=== PATIENT | male | born 1940 | race Caucasian/White ===

== ENCOUNTER 2021-02-14 04:02 | Inpatient (IN) | payer MEDICARE, OTHER ==
[~2021-02-14] VITALS: Ht 165.1 cm; Wt 58.3 kg
--- NOTE | 2021-02-14 04:10 | NUR ---
pt BIB [facility] and met at ambulance bay by EDMD Dr. Cortez. Pt a little ashen and short of breath, SaO2 at 91%, moderate cough and diaphoresis. Pt placed in room 2A by Dr. Cortez. heart monitor attached and initial VS taken. Slightly hypertensive with SBP at 156. Crackles in left base. Scattered Rhonchi and wheezing throughout. Low grade fever at 99.5. Complaining of moderate pain.
[2021-02-14] MEDS ORDERED: levoFLOXacin 750MG/D5W 150 ML IV ONE (04:15)
[2021-02-14] MEDS ORDERED: IPRATROPIUM BROMIDE 0.5 MG/2.5 ML NEBU NEB ONE (04:15)
[2021-02-14] MEDS ORDERED: ALBUTEROL SULFATE 2.5 MG/3 ML NEBU IH ONE (04:15)
[2021-02-14] MEDS ORDERED: ALBUTEROL SULFATE 2.5 MG/3 ML NEBU ONE (04:25)
--- NOTE | 2021-02-14 04:25 | NUR ---
pt's nasal passages swabbed for flu, covid and RSV, specimens sent to lab.
[2021-02-14] MEDS ORDERED: IPRATROPIUM BROMIDE 0.5 MG/2.5 ML NEBU ONE (04:26)
[2021-02-14] MEDS ORDERED: PIPERACILLIN SODIUM/TAZOBACTAM 3.375 G in IV DEXTROSE 5% 50 ML IV ONE (04:30)
[2021-02-14] MEDS ORDERED: CEFTRIAXONE 1 G in IV DEXTROSE 5% 50 ML IV ONE (04:30)
[2021-02-14] MEDS ORDERED: CEFTRIAXONE /D5W 50ML IVPB **ER PYXIS IV ONE (04:38)
[2021-02-14] MEDS ORDERED: methylPREDNISolone SOD SUCC 125 MG/2 ML VIAL IV ONE (04:45)
[2021-02-14 04:46] LABS: CARBON DIOXIDE 24 mmol/L (21-32); CHLORIDE 101 mmol/L (98-107); CREATININE 1.4 mg/dL (0.6-1.3); GLUCOSE 125 mg/dL (74-106); POTASSIUM 3.8 mmol/L (3.5-5.1); UREA NITROGEN, BLOOD 19 mg/dL (7-18)
[2021-02-14] MEDS ORDERED: ATOR40TA PO (04:50)
[2021-02-14] MEDS ORDERED: ASPI81TA31 PO (04:50)
[2021-02-14] MEDS ORDERED: TELM40TA8 PO (04:50)
[2021-02-14] MEDS ORDERED: MIRA50TA PO (04:50)
[2021-02-14 04:55] LABS: ABG BASE EXCESS -1.2 mmol/L; ABG HCO3 22.6 mmol/L; ABG PCO2 34.7 mmHg (35.0-45.0); ABG PH 7.432 (7.350-7.450); ABG PO2 73.8 mmHg (75.0-100.0); ABG SITE RIGHT RADIAL; ABG TOTAL HEMOGLOBIN 10.5 G/dL (13.5-18.0); COHb 0.3 % (0.5-1.5); MetHb 0.4 % (0.0-1.5); O2Hb 94.1 % (94.0-97.0); VENT MODE Nasal Cannula
[2021-02-14 04:59] LABS: HEMATOCRIT 34.9 % (36.7-47.1); MEAN CORPUSCULAR VOLUME 86.8 fL (73.0-96.2); PLATELET COUNT (AUTO) 83 K/uL (152-348)
[2021-02-14] MEDS ORDERED: PIPERACILLIN/TAZOBACTAM/D5W 50 ML IV ONE (04:59)
[2021-02-14 05:00] LABS: *BILIRUBIN,URIN NEGATIVE (NEGATIVE); *BLOOD, URINE NEGATIVE (NEGATIVE); *CLARITY,URINE CLEAR (CLEAR); *COLOR,URINE YELLOW (YELLOW); *KETONES,URINE NEGATIVE (NEGATIVE); *UROBILINOGEN,URINE 0.2 E.U./dl (NORMAL); LEUKOCYTE ESTERASE ,URINE NEGATIVE (NEGATIVE); NITRITE, URINE NEGATIVE (NEGATIVE); PH,URINE 5.5 (5.0-8.0); UGLUCOSE NEGATIVE (NEGATIVE)
[2021-02-14] MEDS ORDERED: IV NORMAL SALINE 500 ML BAG IV ONE (05:00)
[2021-02-14 05:02] LABS: ALANINE AMINOTRANSFERASE 24 U/L (16-63); ALKALINE PHOSPHATASE 84 U/L (50-136); ASPARTATE AMINOTRANSFERASE 27 U/L (15-37); BILIRUBIN,DIRECT 0.2 mg/dL (0.0-0.2); TOTAL PROTEIN, SERUM 6.4 g/dL (6.4-8.2)
[2021-02-14] MEDS ORDERED: methylPREDNISolone SOD SUCC 125 MG/2 ML VIAL ONE (05:09)
[2021-02-14] MEDS ORDERED: IV NORMAL SALINE 250 ML IV ONE (06:03)
[2021-02-14] MEDS ORDERED: IOHEXOL 350 100 ML INFUS..BTL ONE (06:03)
[2021-02-14] MEDS ORDERED: SWABABLE VALVE TRANSFER SET EA MC ONE (06:03)
--- NOTE | 2021-02-14 06:05 | NUR ---
Pt taken to CT for pulmoangioCT
--- NOTE | 2021-02-14 06:20 | NUR ---
Pt returned from CT. Pt tolerated exam well.
--- NOTE | 2021-02-14 07:05 | NUR ---
Pt is in room 2A resting comfortably, dosing off to sleep, no more audible wheezes, saturating well at 98% SaO2 on 3L O2, however when falling into deep sleep pt does quickly desaturate to the high 80s due to mouth breathing while asleep. Pt's color and appearance has markly improved and is no longer ashen or diaphoretic.
--- NOTE | 2021-02-14 07:10 | NUR ---
Thorough Report given to morning EDRN Momo BOND. Pt has good color and appearance, oxygenating, perfusing, and saturating well. VSS, PE WNL, strong and reg pulses x4ext. Stong and equal rod straightener strength bilat. Slight crackles in LLL, otherwise clear. Denies any pain or discomfort. No s/sx of distess noted. Pts daughter left number to endores to teleRN.
[2021-02-14] MEDS ORDERED: eye drop OP (07:13)
[2021-02-14] MEDS ORDERED: MAGNESIUM HYDROXIDE 30 ML LIQUID UDC PO PRN (07:30)
[2021-02-14] MEDS ORDERED: ACETAMINOPHEN 325 MG TABLET PO PRN (07:30)
[2021-02-14] MEDS ORDERED: Z GUARD REMEDY PASTE 57 GM TUBE TOP PRN (07:30)
[2021-02-14] MEDS ORDERED: ONDANSETRON 4 MG/2 ML VIAL IV PRN (07:30)
[2021-02-14] MEDS ORDERED: IV NS 1000 ML 1,000 ML IV PRN (07:30)
--- NOTE | 2021-02-14 07:52 | NUR ---
REPORT WAS GIVEN TO RN ZACHERY. PT WAS TRANSFERED TO ROOM #312.
[2021-02-14] MEDS ORDERED: VANCOMYCIN IV 1,000 MG in IV DEXTROSE 5% 250 ML IV ONE (08:00)
[2021-02-14 08:45] VITALS: BP 136/47
[2021-02-14 11:54] VITALS: BP 130/48
[2021-02-14] MEDS: PIPERACILLIN SODIUM/TAZOBACTAM 3.375 G in IV DEXTROSE 5% 50 ML IV SCH ×2 (13:54→18:12)
[2021-02-14] MEDS ORDERED: PIPERACILLIN SODIUM/TAZOBACTAM 4.5 G in IV DEXTROSE 5% 50 ML IV SCH (14:00)
[2021-02-14] MEDS: methylPREDNISolone SOD SUCC 40 MG/ML VIAL IV SCH ×2 (15:13→21:19)
[2021-02-14 15:58] VITALS: BP 126/39
[2021-02-14] MEDS: IPRATROPIUM BROMIDE 0.5 MG/2.5 ML NEBU NEB SCH ×2 (15:59→19:39)
[2021-02-14] MEDS: ALBUTEROL SULFATE 2.5 MG/3 ML NEBU NEB SCH ×2 (15:59→19:38)
[2021-02-14 17:18] LABS: BLASTS, MANUAL % 2 % (0-0); LYMPHOCYTES % (MANUAL) 81 % (20-40); NEUTROPHILS % (MANUAL) 2 % (42-75)
[2021-02-14 20:10] VITALS: BP 118/37
[2021-02-14] MEDS: ATORVASTATIN 40 MG TABLET PO SCH (20:18)
[2021-02-15 00:10] VITALS: BP 129/50
[2021-02-15] MEDS: IPRATROPIUM BROMIDE 0.5 MG/2.5 ML NEBU NEB SCH ×4 (01:30→20:01)
[2021-02-15] MEDS: ALBUTEROL SULFATE 2.5 MG/3 ML NEBU NEB SCH ×4 (01:30→20:01)
[2021-02-15 04:15] VITALS: BP 123/40
--- NOTE | 2021-02-15 06:05 | NUR ---
Pt slept throughout the night. Denies pain or SOB. States that he is feeling a lot better. IV site intact running ordered fluids. Pt is able to make needs known. SR/SB on monitor. No distress noted. No other issues or concerns at this time, will endorse to day shift.
[2021-02-15 06:15] LABS: HEMATOCRIT 27.3 % (36.7-47.1); MEAN CORPUSCULAR HEMOGLOBIN 28.3 uug (23.8-33.4); MEAN CORPUSCULAR VOLUME 85.8 fL (73.0-96.2); PLATELET COUNT (AUTO) 64 K/uL (152-348)
[2021-02-15] MEDS: methylPREDNISolone SOD SUCC 40 MG/ML VIAL IV SCH ×3 (06:20→21:18)
[2021-02-15 06:30] LABS: VANCOMYCIN,RANDOM 3.3 ug/mL (18.0-26.0)
[2021-02-15] MEDS: CEFEPIME HCL 1 G in IV DEXTROSE 5% 50 ML IV SCH ×3 (06:36→21:18)
[2021-02-15 06:38] LABS: BILIRUBIN,TOTAL 1.3 mg/dL (0.2-1.0); CREATININE 0.9 mg/dL (0.6-1.3); MAGNESIUM 2.2 mg/dL (1.8-2.4); PHOSPHOROUS 4.7 mg/dL (2.5-4.9); POTASSIUM 4.2 mmol/L (3.5-5.1); TOTAL PROTEIN, SERUM 5.2 g/dL (6.4-8.2)
[2021-02-15] MEDS ORDERED: CEFEPIME HCL 1 G VIAL ONE (06:38)
[2021-02-15 06:43] LABS: THYROID STIMULATING HORMONE 0.527 mIU/mL (0.358-3.740)
--- NOTE | 2021-02-15 06:58 | NUR ---
Critical WBC of 46.9 from Bill in lab. Js Youssef notified. No new orders.
--- NOTE | 2021-02-15 07:30 | NUR ---
received report from previous shift, patient currently sitting up in chair, alert and oriented x4, patient appears pleasant, 22g gauge to left hand in place and patent at this time. curretnly on 2l via n/c with saturation of 97%, no episodes of coughing at this time. rr even and non-labored. call light within reach.
[2021-02-15] MEDS ORDERED: VANCOMYCIN IV 1,000 MG in IV DEXTROSE 5% 250 ML IV SCH (08:00)
[2021-02-15] MEDS ORDERED: ENOXAPARIN SODIUM 40 MG/0.4 ML DISP.SYRIN SQ SCH (09:00)
--- NOTE | 2021-02-15 09:30 | NUR ---
seen by Dr. Sotelo no new orders at this time.
[2021-02-15] MEDS: ASPIRIN 81 MG TAB.CHEW PO SCH (09:41)
[2021-02-15] MEDS ORDERED: VALS40TA4 PO (11:57)
[2021-02-15 12:00] VITALS: BP 126/45
[2021-02-15] MEDS ORDERED: LATA2.5D15 OP (12:01)
[2021-02-15] MEDS ORDERED: CHOL200010 PO (12:02)
[2021-02-15] MEDS ORDERED: TAMS-3 PO (12:03)
--- NOTE | 2021-02-15 12:29 | NUR ---
family requesting physical therapy evaluation, spoke with Dr. Sotelo with new order for pt eval, order noted and carried out.
--- NOTE | 2021-02-15 13:35 | NUR ---
patient seen by physical therapy, patient with ok to ambulate using fww.
[2021-02-15] MEDS: ENSURE WITH FIBER 237 ML LIQUID (CHOCOLATE) PO SCH ×2 (13:47→17:29)
[2021-02-15 14:44] LABS: LYMPHOCYTES % (MANUAL) 90 % (20-40); MONOCYTES % (MANUAL) 1 % (2-10); NEUTROPHILS % (MANUAL) 9 % (42-75)
[2021-02-15 16:00] VITALS: BP 123/41
--- NOTE | 2021-02-15 18:00 | NUR ---
family at bedside all questions answered, o2 titrated to 1L patient currently with spo2 @ 95% rr even and non-labored, 0 episode of sob, per DTR can i have a spirometer for him, Spirometer brought to bedside.
[2021-02-15] MEDS: ATORVASTATIN 40 MG TABLET PO SCH (20:08)
[2021-02-15 20:15] VITALS: BP 148/43
--- NOTE | 2021-02-15 22:05 | NUR ---
Received resident awake sitting on chair. On O2 at 1 lpm via NC, saturating at 98%. No respiratory distress noted. Saline lock on left hand still patent and intact, flushed with NS. Due medications given on time and tolerated well. All needs attended. Call light placed within reach. Will continue to monitor.
[2021-02-16 00:15] VITALS: BP 141/51
[2021-02-16] MEDS: ALBUTEROL SULFATE 2.5 MG/3 ML NEBU NEB SCH ×4 (02:03→20:55)
[2021-02-16] MEDS: IPRATROPIUM BROMIDE 0.5 MG/2.5 ML NEBU NEB SCH ×4 (02:03→20:55)
[2021-02-16 04:15] VITALS: BP 150/51
[2021-02-16] MEDS: CEFEPIME HCL 1 G in IV DEXTROSE 5% 50 ML IV SCH (05:23)
[2021-02-16] MEDS: methylPREDNISolone SOD SUCC 40 MG/ML VIAL IV SCH ×2 (05:23→21:21)
[2021-02-16 06:26] LABS: HEMATOCRIT 27.3 % (36.7-47.1); MEAN CORPUSCULAR HEMOGLOBIN 27.8 uug (23.8-33.4); MEAN CORPUSCULAR VOLUME 85.9 fL (73.0-96.2); PLATELET COUNT (AUTO) 64 K/uL (152-348)
[2021-02-16 06:51] LABS: CREATININE 0.8 mg/dL (0.6-1.3); MAGNESIUM 2.3 mg/dL (1.8-2.4); PHOSPHOROUS 3.7 mg/dL (2.5-4.9); POTASSIUM 4.5 mmol/L (3.5-5.1)
--- NOTE | 2021-02-16 07:10 | NUR ---
Pt slept intermittently throughout the night. On O2 at 2 lpm via NC, saturating at 97%. Denies pain and discomfort at this time. All needs attended. Call light placed within reach. Frequent visual checks done. Will endorse to next shift for continuity of care.
--- NOTE | 2021-02-16 08:30 | NUR ---
patient seen Dr. Sotelo with goal of the day to have patient on R/A to maintain spo2 above 92, DTR at bedside speaking to Md.
[2021-02-16 08:45] VITALS: BP 114/47
--- NOTE | 2021-02-16 09:13 | NUR ---
PT seen by physical therapy, ambulated on R/A, spo2 remained above 92%.
[2021-02-16] MEDS: ASPIRIN 81 MG TAB.CHEW PO SCH (09:18)
[2021-02-16] MEDS: ENSURE WITH FIBER 237 ML LIQUID (CHOCOLATE) PO SCH ×3 (09:56→18:10)
[2021-02-16 14:25] LABS: LYMPHOCYTES % (MANUAL) 82 % (20-40); MONOCYTES % (MANUAL) 6 % (2-10); NEUTROPHILS % (MANUAL) 12 % (42-75)
[2021-02-16 15:50] VITALS: BP 121/39
--- NOTE | 2021-02-16 17:30 | NUR ---
report given to oncoming nurse
[2021-02-16 20:10] VITALS: BP 114/39
[2021-02-16] MEDS: ATORVASTATIN 40 MG TABLET PO SCH (20:15)
[2021-02-16] MEDS ORDERED: LATANOPROST OPHT DROP 2.5 ML BOTTLE EACHEYE SCH (21:00)
[2021-02-17] MEDS: IPRATROPIUM BROMIDE 0.5 MG/2.5 ML NEBU NEB SCH ×2 (01:30→08:10)
[2021-02-17] MEDS: ALBUTEROL SULFATE 2.5 MG/3 ML NEBU NEB SCH ×2 (01:30→08:10)
[2021-02-17 05:41] VITALS: BP 144/54
--- NOTE | 2021-02-17 07:30 | NUR ---
Patient received in chair, alert and oriented x4. On RA with no SOB or difficulties breathing. Oxygen saturation is at 95% at rest. Left hand IV is intact with no redness or swelling. No reports of pain or discomforts at this time. Call light and personal belongings within easy reach. Will continue to monitor.
[2021-02-17] MEDS: methylPREDNISolone SOD SUCC 40 MG/ML VIAL IV SCH (08:19)
[2021-02-17] MEDS: ENSURE WITH FIBER 237 ML LIQUID (CHOCOLATE) PO SCH ×2 (08:20→12:52)
[2021-02-17] MEDS: ASPIRIN 81 MG TAB.CHEW PO SCH (08:20)
[2021-02-17] MEDS ORDERED: CHOLECALCIFEROL 1,000 UNIT TABLET PO SCH (09:00)
[2021-02-17] MEDS ORDERED: Mirabegron (Myrbetriq) 50 MG) PO SCH (09:00)
[2021-02-17] MEDS ORDERED: VALSARTAN 40 MG TABLET PO SCH (09:00)
[2021-02-17 12:00] VITALS: BP 136/52
--- NOTE | 2021-02-17 13:20 | NUR ---
Patient's daughter at bedside for discharge. Patient and daughter expressed understanding regarding discharge instructions and picking up new prescriptions from the pharmacy. Patient discharged in satisfactory condition with all his personal belongings, including his new walker.
[2021-02-17] MEDS ORDERED: TAMSULOSIN HCL 0.4 MG CAP.SR.24H PO SCH (21:00)
== END 2021-02-17 13:20 | disposition home health service (06) | DRG 177 ==
LOC: ER 04:05 → TELE-TD3 08:02 → TELE3 10:20 → MEDSURG3 02-16 08:52
PROVIDERS: ADMIT Internal Medicine; ATTEND Internal Medicine
DX: J15.6 Pneumonia due to other Gram-negative bacteria (principal); J96.01 Acute respiratory failure with hypoxia; N17.0 Acute kidney failure with tubular necrosis; C91.10 Chronic lymphocytic leukemia of B-cell type not having achieved remission; I50.32 Chronic diastolic (congestive) heart failure; D63.8 Anemia in other chronic diseases classified elsewhere; E78.5 Hyperlipidemia, unspecified; I11.0 Hypertensive heart disease with heart failure; I25.10 Atherosclerotic heart disease of native coronary artery without angina pectoris; Z20.822 Contact with and (suspected) exposure to COVID-19; Z85.46 Personal history of malignant neoplasm of prostate; Z98.61 Coronary angioplasty status
CPT/HCPCS: 36415; 36600; 70030-TC; 71045; 71275; 83605; 83735; 84100; 84443; 85025; 86140; 87040; 87400; 93005; 93307; 94640; 94664; 97161; A4663; G0378; J0692; J0696; J1650; J2543; J2920; J2930; J3370; J3590; J7030; J7040; J7050; J7060; Q9967; U0003